=== PATIENT | male | born 1935 | race Caucasian/White ===

== ENCOUNTER 2018-11-29 19:16 | Emergency (ER) | payer MEDICARE, OTHER ==
[~2018-11-29] VITALS: Ht 180.3 cm; Wt 126.0 kg
[2018-11-29] MEDS ORDERED: normal saline 1000ML IV soln IVB ONE (19:35)
[2018-11-29 20:01] LABS: BASOPHILS % (AUTO) 0.7 % (0-1); EOSINOPHILS # (AUTO) 0.1 X10'3 (0-0.9); EOSINOPHILS % (AUTO) 1.7 % (0-6); HEMATOCRIT 33.2 % (42.0-52.0); HEMOGLOBIN 11.1 g/dl (14.0-17.9); LYMPHOCYTES # (AUTO) 1.8 X10'3 (1.1-4.8); LYMPHOCYTES % (AUTO) 32.8 % (21-51); MEAN CORPUSCULAR HEMOGLOBIN 30.7 PG (27.0-31.0); MEAN CORPUSCULAR HGB CONC 33.3 g/dL (33.0-36.5); MEAN CORPUSCULAR VOLUME 92.3 FL (78-98); MEAN PLATELET VOLUME 9.5 FL (7.4-10.4); MONOCYTES # (AUTO) 0.5 X10'3 (0-0.9); MONOCYTES % (AUTO) 8.1 % (2-12); NEUTROPHILS # (AUTO) 3.2 X10'3 (1.8-7.7); NEUTROPHILS % (AUTO) 56.7 % (42-75); PLATELET COUNT 130 X10'3 (140-440); RED CELL DISTRIBUTION WIDTH 14.3 % (11.5-14.5); WHITE BLOOD COUNT 5.6 X10'3 (4.5-11.0)
[2018-11-29 20:14] LABS: ALANINE AMINOTRANSFERASE 25 U/L (12-78); ALBUMIN 3.1 G/DL (3.4-5.0); ALBUMIN/GLOBULIN RATIO 1.1 (1.1-1.5); ALKALINE PHOSPHATASE 52 IU/L (46-116); ANION GAP 10 (8-16); ASPARTATE AMINO TRANSFERASE 18 U/L (10-37); BILIRUBIN,TOTAL 0.1 MG/DL (0.1-1.0); BLOOD UREA NITROGEN 41 MG/DL (7-18); BUN/CREATININE RATIO 22.2 (5.4-32.0); CALCIUM 8.6 MG/DL (8.5-10.1); CHLORIDE 106 MMOL/L (99-107); CREATININE 1.85 MG/DL (0.60-1.10); GLUCOSE 192 MG/DL (70-104); POTASSIUM 4.3 MMOL/L (3.5-5.1); SODIUM 138 MMOL/L (135-145); TOTAL CARBON DIOXIDE 22.5 MMOL/L (24-32); TOTAL PROTEIN 5.9 G/DL (6.4-8.2); eGFR 35 ML/MIN
[2018-11-29 20:18] LABS: ETHANOL 0.024 GM/DL (0.0-0.010); TROPONIN I < 0.04 NG/ML (0.0-0.05)
[2018-11-29 22:00] VITALS: BP 124/64
== END 2018-11-29 22:07 | disposition home or self-care (01) ==
LOC: ER 19:16
DX: F10.129 Alcohol abuse with intoxication, unspecified (principal); R55 Syncope and collapse; R60.0 Localized edema; E66.9 Obesity, unspecified; I10 Essential (primary) hypertension; E11.9 Type 2 diabetes mellitus without complications; Y90.9 Presence of alcohol in blood, level not specified
CPT/HCPCS: 36415; 71045; 80053; 80320; 82948; 83880; 84484; 85025; 93005; 99284; J7030

== ENCOUNTER 2022-02-15 07:10 | Emergency (ER) | payer OTHER, MEDICARE ==
[~2022-02-15] VITALS: Ht 182.9 cm; Wt 105.9 kg
[~2022-02-15 07:10] MED LIST: AMIO200T67 PO; ASPI-1265 PO; ATOR10TA PO; CHOL20002 PO; CYAN500T71 PO; HYDR-3972 PO; MULT-1085 PO; PIOG15TA8 PO; SITA100T11 PO
[2022-02-15 07:31] LABS: BASOPHILS # (AUTO) 0.1 X10'3 (0-0.2); BASOPHILS % (AUTO) 0.8 % (0-1); EOSINOPHILS # (AUTO) 0.1 X10'3 (0-0.9); EOSINOPHILS % (AUTO) 1.4 % (0-6); HEMATOCRIT 34.7 % (42.0-52.0); HEMOGLOBIN 11.2 g/dl (14.0-17.9); LYMPHOCYTES # (AUTO) 1.4 X10'3 (1.1-4.8); LYMPHOCYTES % (AUTO) 17.7 % (21-51); MEAN CORPUSCULAR HEMOGLOBIN 29.3 PG (27.0-31.0); MEAN CORPUSCULAR HGB CONC 32.2 g/dL (33.0-36.5); MEAN CORPUSCULAR VOLUME 90.7 FL (78-98); MEAN PLATELET VOLUME 8.7 FL (7.4-10.4); MONOCYTES # (AUTO) 0.6 X10'3 (0-0.9); MONOCYTES % (AUTO) 7.6 % (2-12); NEUTROPHILS # (AUTO) 5.8 X10'3 (1.8-7.7); NEUTROPHILS % (AUTO) 72.5 % (42-75); PLATELET COUNT 184 X10'3 (140-440); RED BLOOD COUNT 3.83 X10'6 (4.70-6.10); RED CELL DISTRIBUTION WIDTH 15.8 % (11.5-14.5)
[2022-02-15 07:40] LABS: ALANINE AMINOTRANSFERASE 26 U/L (12-78); ALBUMIN 2.9 G/DL (3.4-5.0); ALBUMIN/GLOBULIN RATIO 0.8 (1.1-1.5); ALKALINE PHOSPHATASE 125 IU/L (46-116); ANION GAP 8 (8-16); ASPARTATE AMINO TRANSFERASE 21 U/L (10-37); BILIRUBIN,TOTAL 0.3 MG/DL (0.1-1.0); BLOOD UREA NITROGEN 31 MG/DL (7-18); BUN/CREATININE RATIO 11.4 (5.4-32.0); CALCIUM 9.6 MG/DL (8.5-10.1); CHLORIDE 102 MMOL/L (99-107); CREATININE 2.72 MG/DL (0.60-1.10); GLUCOSE 176 MG/DL (70-104); POTASSIUM 4.1 MMOL/L (3.5-5.1); SODIUM 139 MMOL/L (135-145); TOTAL CARBON DIOXIDE 29.1 MMOL/L (24-32); TOTAL PROTEIN 6.7 G/DL (6.4-8.2); eGFR 22 ML/MIN
[2022-02-15] MEDS ORDERED: AMIO200T61 PO (08:12)
[2022-02-15] MEDS ORDERED: ASPI-10 PO (08:12)
[2022-02-15] MEDS ORDERED: FOLI0.4T14 PO (08:12)
[2022-02-15] MEDS ORDERED: [UNRECOGNIZED DRUG - CODE] PO (08:12)
[2022-02-15] MEDS ORDERED: CYAN1TAB41 PO (08:12)
[2022-02-15] MEDS ORDERED: NITR0.4T51 SL (08:12)
[2022-02-15] MEDS ORDERED: CHOL20004 PO (08:12)
--- NOTE | 2022-02-15 08:12 | NUR ---
med rec completed with pt home list from [facility] and pt assistance
[2022-02-15] MEDS ORDERED: iohexol 350MG/ML 100ml bottle IV ONE (09:00)
[2022-02-15 14:46] VITALS: BP 135/67
== END 2022-02-15 12:42 | disposition home or self-care (01) ==
LOC: ER 07:10
DX: R09.1 Pleurisy (principal); R07.2 Precordial pain; I10 Essential (primary) hypertension; E11.9 Type 2 diabetes mellitus without complications; Z98.890 Other specified postprocedural states; Z79.82 Long term (current) use of aspirin; Z79.899 Other long term (current) drug therapy
CPT/HCPCS: 36415; 71045; 71275; 80053; 83880; 84484; 85025; 85379; 93005; 93971; 99285; J3490; Q9967

== ENCOUNTER 2023-07-06 08:00 | Day surgery (SDC) | payer MEDICARE, OTHER ==
[~2023-07-06] VITALS: Ht 182.9 cm; Wt 88.6 kg
[~2023-07-06 08:00] MED LIST changes: +AMI200T PO; -AMIO200T67 PO; +ASPI-10 PO; -ASPI-1265 PO; -CHOL20002 PO; +CHOL20004 PO; +CYAN1TAB41 PO; -CYAN500T71 PO; +FOLI0.4T14 PO; -HYDR-3972 PO; -MULT-1085 PO; +NITR0.4T51 SL; +[UNRECOGNIZED DRUG - CODE] PO
[2023-07-06 08:24] VITALS: BP 118/62; PULSE 87; RESP 16; TEMP 97.7; O2SAT 97
[2023-07-06] MEDS ORDERED: albumin 25% 100mL bottle x 1 IV PRN (08:25)
[2023-07-06] MEDS ORDERED: SITA25TA3 PO (08:26)
[2023-07-06] MEDS ORDERED: ATOR10TA70 PO (08:26)
[2023-07-06] MEDS ORDERED: PANT40TA54 PO (08:32)
[2023-07-06] MEDS ORDERED: METO5TAB7 PO (08:32)
[2023-07-06] MEDS ORDERED: APIX2.5T PO (08:32)
[2023-07-06] MEDS ORDERED: DOCU-148 PO (08:33)
[2023-07-06 09:00] VITALS: RESP 16; O2SAT 97
[2023-07-06 09:30] VITALS: BP 104/50; PULSE 71; RESP 16; O2SAT 99
[2023-07-06] MEDS ORDERED: acetaminophen 325mg tablet PO ONE (09:40)
[2023-07-06 09:45] VITALS: BP 104/72; PULSE 75; RESP 16; O2SAT 97
--- NOTE | 2023-07-06 09:48 | NUR ---
recd. call from lab, Melba, PH is too bloody and they need to cancel it.
[2023-07-06 10:00] VITALS: BP 116/57; PULSE 67; RESP 16; O2SAT 97
[2023-07-06 10:15] VITALS: BP 116/57; PULSE 67; RESP 16; O2SAT 97
== END 2023-07-06 10:30 | disposition home or self-care (01) ==
LOC: SSTAY O 08:00
PROVIDERS: ATTEND Radiology Vascular & Interventional Radiology
DX: J90 Pleural effusion, not elsewhere classified (principal); I10 Essential (primary) hypertension; K21.9 Gastro-esophageal reflux disease without esophagitis; I25.2 Old myocardial infarction; N40.0 Benign prostatic hyperplasia without lower urinary tract symptoms; I48.91 Unspecified atrial fibrillation; Z95.1 Presence of aortocoronary bypass graft; Z87.891 Personal history of nicotine dependence; Z79.899 Other long term (current) drug therapy; Z79.01 Long term (current) use of anticoagulants; Z79.82 Long term (current) use of aspirin; Z80.0 Family history of malignant neoplasm of digestive organs; Z82.49 Family history of ischemic heart disease and other diseases of the circulatory system
CPT/HCPCS: 32555; 71045; 83615; 87070; 87205; C1729; A4615

== ENCOUNTER 2023-10-06 11:52 | Emergency (ER) | payer MEDICARE, OTHER ==
[~2023-10-06] VITALS: Ht 182.9 cm; Wt 8.6 kg
[~2023-10-06 11:52] MED LIST changes: +APIX2.5T PO; -ASPI-10 PO; -ATOR10TA PO; +ATOR10TA70 PO; +AZI25OT PO; +CEFD300C3 PO; -CHOL20004 PO; +COR3.125T PO; -CYAN1TAB41 PO; +DOCU-148 PO; +EMPA10TA PO; +LISI2.5T14 PO; +METO5TAB7 PO; +PANT40TA54 PO; -PIOG15TA8 PO; -SITA100T11 PO; +SITA25TA3 PO
[2023-10-06 11:57] VITALS: TEMP 97.2
[2023-10-06 12:33] LABS: BASOPHILS % (AUTO) 0.6 % (0-1); EOSINOPHILS # (AUTO) 0.1 X10'3 (0-0.9); EOSINOPHILS % (AUTO) 1.4 % (0-6); HEMATOCRIT 34.5 % (42.0-52.0); HEMOGLOBIN 11.4 g/dl (14.0-17.9); LYMPHOCYTES # (AUTO) 1.2 X10'3 (1.1-4.8); LYMPHOCYTES % (AUTO) 15.3 % (21-51); MEAN CORPUSCULAR HEMOGLOBIN 28.6 PG (27.0-31.0); MEAN CORPUSCULAR HGB CONC 32.9 g/dL (33.0-36.5); MEAN CORPUSCULAR VOLUME 86.9 FL (78-98); MEAN PLATELET VOLUME 8.5 FL (7.4-10.4); MONOCYTES # (AUTO) 0.6 X10'3 (0-0.9); MONOCYTES % (AUTO) 8.2 % (2-12); NEUTROPHILS # (AUTO) 5.7 X10'3 (1.8-7.7); NEUTROPHILS % (AUTO) 74.5 % (42-75); PLATELET COUNT 191 X10'3 (140-440); RED BLOOD COUNT 3.97 X10'6 (4.70-6.10); RED CELL DISTRIBUTION WIDTH 17.3 % (11.5-14.5); WHITE BLOOD COUNT 7.6 X10'3 (4.5-11.0)
[2023-10-06 13:00] VITALS: BP 111/54; PULSE 87; RESP 18; O2SAT 100
[2023-10-06 13:03] LABS: ALBUMIN 2.6 G/DL (3.4-5.0); ANION GAP 8 (8-16); BLOOD UREA NITROGEN 50 MG/DL (7-18); CALCIUM 10.6 MG/DL (8.5-10.1); CHLORIDE 102 MMOL/L (99-107); CREATININE 1.92 MG/DL (0.60-1.10); GLUCOSE 128 MG/DL (70-104); POTASSIUM 4.8 MMOL/L (3.5-5.1); PRO BRAIN NATRIURETIC PEPTIDE 4323 PG/ML (0-450); SODIUM 137 MMOL/L (135-145); TOTAL CARBON DIOXIDE 27.2 MMOL/L (24-32); eCRCL 3 ML/MIN; eGFR 33 ML/MIN
[2023-10-06 14:58] VITALS: BP 126/57; PULSE 79; RESP 19; O2SAT 100
== END 2023-10-06 15:01 | disposition home or self-care (01) ==
LOC: ER 11:53
DX: R07.89 Other chest pain (principal); Z79.899 Other long term (current) drug therapy; Z79.2 Long term (current) use of antibiotics
CPT/HCPCS: 36415; 71045; 76604; 80048; 83880; 84484; 85025; 93005; 99285